=== PATIENT | male | born 2005 | race Two or more races ===

== ENCOUNTER 2023-01-26 16:25 | Emergency (ER) | payer MEDICAID, OTHER ==
[~2023-01-26] VITALS: Ht 172.7 cm; Wt 84.4 kg
[2023-01-26 17:08] VITALS: BP 100/56
[2023-01-26] MEDS ORDERED: CIP03OS RIGHTEYE (17:16)
== END 2023-01-26 17:30 | disposition home or self-care (01) ==
LOC: ER 16:25
DX: H11.31 Conjunctival hemorrhage, right eye (principal); Z88.1 Allergy status to other antibiotic agents

== ENCOUNTER 2025-05-08 02:06 | Emergency (ER) | payer MEDICAID, OTHER ==
[~2025-05-08] VITALS: Ht 172.7 cm; Wt 83.9 kg
[~2025-05-08 02:06] MED LIST: CIP03OS RIGHTEYE
[2025-05-08 03:08] VITALS: BP 128/74; PULSE 64; RESP 16; TEMP 97.9; O2SAT 95
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
== END 2025-05-08 03:16 | disposition home or self-care (01) ==
LOC: ER 02:06
DX: H21.02 Hyphema, left eye (principal); Y04.0XXA Assault by unarmed brawl or fight, initial encounter; Y93.89 Activity, other specified; Y92.89 Other specified places as the place of occurrence of the external cause; Y99.8 Other external cause status

== ENCOUNTER 2025-11-09 15:19 | Emergency (ER) | payer OTHER ==
[~2025-11-09] VITALS: Ht 172.7 cm; Wt 83.1 kg
--- NOTE | 2025-11-09 16:37 | ED.PDOC ---
Back pain HPI HPI Comments 20-year-old male who presents to the ED for chief complaint of right sided rib pain the started 3 days ago. Patient reports that pain was tolerable up until he to work today and was lifting and moving around. Patient's mentions he was drinking excessive amount of alcohol the day the pain started however denies any abdominal pain nausea vomiting diarrhea. Patient denies any medical history. Chief Complaint: Abdominal Pain Time Seen by MD: 16:24 Primary Care Provider: UNKNOWN Reviewed Notes: Nurses Notes, Medications, Allergies Allergies: Coded Allergies: NO KNOWN ALLERGIES (Unverified , 01/26/23) Home Meds Active Scripts Ibuprofen Micronized (MOTRIN TABLET) 600 Mg Tb, 600 MG PO TID PRN for 3 Days, #9 TAB *Black box warning-NSAIDS can increase risk of [place] & hypertension, GI irritation, ulceration, bleed, perferation. Do not use post cardiac surgery. Use short duration/lowest effective dose. Prov:GUSTAVO SUE MD 11/09/25 Ciprofloxacin Hcl (Ophth) (Cipro Opthalmic Soln) [address], 2 DROP TAYE ENCARNACION, #5 ML Prov:TANJA CHO 01/26/23 Information Source: Patient Mode of Arrival: Ambulatory Timing: Days (3) Duration: Since onset Severity: Moderate Onset: Spontaneous History of: None Modifying Factors: Nothing; No Movement, No Twisting Past Medical History PAST MEDICAL HISTORY: Denies Surgical History: Denies all surgeries Family History Family History: Unknown Social History Smoker: Cigarettes Alcohol: Occasionally Drugs: Denies Drug Use Lives In: Home Constitutional: denies: chills, diaphoresis, fatigue, fever, malaise, sweats, weakness, others EENTM: denies: blurred vision, double vision, ear bleeding, ear discharge, ear drainage, ear pain, ear ringing, eye pain, eye redness, hearing loss, mouth pain, mouth swelling, nasal discharge, nose bleeding, nose congestion, nose pain, photophobia, tearing, throat pain, throat swelling, voice changes, others Respiratory: denies: cough, hemoptysis, orthopnea, SOB at rest, shortness of breath, SOB with excertion, stridor, wheezing, others Cardiovascular: denies: chest pain, dizzy spells, diaphoresis, Dyspnea on exertion, edema, irregular heart beat, left arm pain, lightheadedness, palpitations, PND, syncope, others Gastrointestinal: denies: abdomen distended, abdominal pain, blood streaked bowels, constipated, diarrhea, dysphagia, difficulty swallowing, hematemesis, melena, nausea, poor appetite, poor fluid intake, rectal bleeding, rectal pain, vomiting, others Genitourinary: denies: burning, dysuria, flank pain, frequency, hematuria, incontinence, penile discharge, penile sore, pain, testicle pain, testicle swelling, urgency, others Neurological: denies: dizziness, fainting, headache, left sided numbness, left sided weakness, numbness, paresthesia, pre-existing deficit, right sided numbness, right sided weakness, seizure, speech problems, tingling, tremors, weakness, others Musculoskeletal: reports: others (Right rib pain); denies: back pain, gout, joint pain, joint swelling, muscle pain, muscle stiffness, neck pain Integumetry: denies: bruises, change in color, change in hair/nails, dryness, laceration, lesions, lumps, rash, wounds, others Allergic/Immunocompromised: denies: Difficulty Healing, Frequent Infections, Hives, Itching, others Hematologic/Lymphatic: denies: anemia, blood clots, easy bleeding, easy bruising, swollen glands, others Endocrine: denies: excessive hunger, excessive sweating, excessive thirst, excessive urination, flushing, intolerance to cold, intolerance to heat, unexplained weight gain, unexplained weight loss, others Psychiatric: denies: anxiety, bipolar disorder, depression, hopeless, panic disorder, schizophrenia, sleepless, suicidal, others All Other Systems: Reviewed and Negative Physical Exam General Appearance: Moderate Distress HEENT: Normal ENT Inspection, Pharynx Normal, TMs Normal Neck: Full Range of Motion, Non-Tender, Normal, Normal Inspection Respiratory: Chest Non-Tender, Lungs Clear, No Accessory Muscle Use, No Respiratory Distress, Normal Breath Sounds Cardiovascular: No Edema, No JVD, No Murmur, No Gallop, Normal Peripheral Pulses, Regular Rate/Rhythm Breast Exam: Deferred Gastrointestinal: No Organomegaly, Non Tender, No Pulsatile Mass, Normal Bowel Sounds, Soft Genitalia: Deferred Pelvic: Deferred Rectal: Deferred Extremities: No calf tenderness, Normal capillary refill, Normal inspection, Normal range of motion, Non-tender, No pedal edema Musculoskeletal : Apperance: Normal Neurologic: Alert, acetylene cylinder packing mixer II-XII nml as Tested, No Motor Deficits, Normal Affect, Normal Mood, No Sensory Deficits Cerebellar Function: Normal Reflexes: Normal Skin: Dry, Normal Color, Warm Peripheral Pulses: 3+ Radial (R), 3+ Radial (L) Lymphatic: No Adenopathy Was a procedure done? Was a procedure done?: No Back Pain Differential Dx Differential Diagnosis: Fracture, Musculoskeletal Pain, Other (sprain , strain ) X-Ray, Labs, Meds, VS Vital Signs Date Time Temp Pulse Resp B/P (MAP) Pulse Ox O2 Delivery O2 Flow Rate FiO2 11/09/25 15:21 98.0 81 18 115/64 97 98.0 Patient alert. Came in because of musculoskeletal pain. Vitals stable. Answering all questions. On examination no sign of any acute process. He is comfortable. No leg swelling. No shortness a breath. Saturation pristine on room air. Heart rate within normal limits. Chest x-ray reviewed does not show any acute process. No acute process. Was given prescription of Motrin. Was told to follow up with his primary care physician. Was told to come back if there is any problem. Time of 1ST Reevaluation: 16:37 Reevaluation 1ST: Improved Patient Education/Counseling: Diagnosis, Treatment, Prognosis Family Education/Counseling: No Family Present SEPSIS Sepsis Screen Date sepsis recognized/suspect: Nov 09, 2025 Time Sepsis recognized/suspect: 1523 Recent Procedure: No On Antibiotic Therapy: No Respiratory Rate >20: No Heart Rate >90: No Temp<36 C (96.8 F) or >38.3 C: No SBP <90 or MAP <65 mmHG: No New Acute Mental Status Change: No Is the patient on CPAP, BIPAP,: No Physician Orders Chest Portable (11/09/25 16:57) Vital Signs Date Time Temp Pulse Resp B/P (MAP) Pulse Ox O2 Delivery O2 Flow Rate FiO2 11/09/25 15:21 98.0 81 18 115/64 97 98.0 Departure 1 Departure Time of Disposition: 17:12 Impression: Primary Impression: Musculoskeletal pain Disposition: 01 HOME / SELF CARE / HOMELESS Condition: Good e-Prescriptions Ibuprofen Micronized (MOTRIN TABLET) 600 Mg Tb 600 MG PO TID PRN for 3 Days, #9 TAB *Black box warning-NSAIDS can increase risk of WA & hypertension, GI irritation, ulceration, bleed, perferation. Do not use post cardiac surgery. Use short duration/lowest effective dose. Prov: GUSTAVO SUE MD 11/09/25 Discharged With: Self Critical Care Note Critical Care Time?: No Stability Stability form required: No I personally scribed for GUSTAVO SUE MD ([email or web address]) on 11/09/25 at 16:37. Electronically submitted by Nicole Esquivel ([email or web address]). GUSTAVO SUE MD Nov 09, 2025 16:37
[2025-11-09] MEDS ORDERED: IBU600T PO (17:13)
--- NOTE | 2025-11-09 17:30 | DVH ---
CHEST RADIOGRAPH INDICATION: fall TECHNIQUE: Single frontal view of the chest was obtained COMPARISON: None FINDINGS: Lines and Tubes: None Lungs: No focal consolidation. Pleura: No effusion. No pneumothorax. Cardiomediastinal contours: Unremarkable Bones: No acute osseous abnormality. IMPRESSION: No acute cardiopulmonary disease.
[2025-11-09 17:52] VITALS: BP 132/76; PULSE 84; RESP 20; TEMP 98; O2SAT 96
== END 2025-11-09 17:53 | disposition home or self-care (01) ==
LOC: ER 15:19
DX: M79.18 Myalgia, other site (principal); R07.89 Other chest pain; F17.210 Nicotine dependence, cigarettes, uncomplicated
CPT/HCPCS: 71045